=== PATIENT | female | born 1995 | race Caucasian/White ===

== ENCOUNTER 2019-11-29 18:56 | Emergency (ER) | payer SELFPAY ==
[~2019-11-29] VITALS: Ht 167.6 cm; Wt 104.5 kg
[2019-11-29 21:46] VITALS: BP 131/68
== END 2019-11-29 21:52 | disposition home or self-care (01) ==
LOC: EMS 18:58
DX: M25.531 Pain in right wrist (principal); J45.909 Unspecified asthma, uncomplicated; F17.210 Nicotine dependence, cigarettes, uncomplicated